=== PATIENT | female | born 1985 | race American Indian/Alaskan Native ===

== ENCOUNTER 2020-06-28 09:31 | Day surgery (SDC) | payer OTHER | END 2020-06-28 19:35 | disposition home or self-care (01) | LOC: CIR.AMB 09:31 | PROVIDERS: ATTEND Obstetrics & Gynecology Obstetrics | DX: N93.8 Other specified abnormal uterine and vaginal bleeding (principal); Z20.828 Contact with and (suspected) exposure to other viral communicable diseases ==

== ENCOUNTER 2021-05-10 22:42 | Emergency (ER) | payer OTHER ==
[~2021-05-10] VITALS: Ht 162.6 cm; Wt 73.5 kg
[2021-05-10] MEDS ORDERED: PRENATAL + DHA1 EAC1 (22:49)
== END 2021-05-11 02:24 | disposition home or self-care (01) ==
LOC: ER 22:42
DX: O46.91 Antepartum hemorrhage, unspecified, first trimester (principal); Z3A.01 Less than 8 weeks gestation of pregnancy

== ENCOUNTER 2021-06-03 16:39 | Emergency (ER) | payer OTHER ==
[~2021-06-03] VITALS: Ht 162.6 cm; Wt 73.5 kg
[~2021-06-03 16:39] MED LIST: PRENATAL + DHA1 EAC1
== END 2021-06-03 21:14 | disposition home or self-care (01) ==
LOC: ER 16:39
DX: O20.9 Hemorrhage in early pregnancy, unspecified (principal); Z3A.10 10 weeks gestation of pregnancy

== ENCOUNTER 2021-06-27 13:02 | Emergency (ER) | payer OTHER ==
[~2021-06-27] VITALS: Ht 162.6 cm; Wt 73.9 kg
[2021-06-27] MEDS ORDERED: NIFEDIPINE ER30 MG PO (13:54)
== END 2021-06-29 11:17 | disposition home or self-care (01) ==
LOC: ER 13:02 → SEC-K 19:09 → ER 06-29 11:17
DX: O99.412 Diseases of the circulatory system complicating pregnancy, second trimester (principal); O46.8X2 Other antepartum hemorrhage, second trimester; Z3A.22 22 weeks gestation of pregnancy; Z03.818 Encounter for observation for suspected exposure to other biological agents ruled out; R00.0 Tachycardia, unspecified

== ENCOUNTER 2021-08-14 13:01 | Outpatient (CLI) | payer OTHER ==
[~2021-08-14 13:01] MED LIST changes: +NIFEDIPINE ER30 MG PO
== END 2021-08-14 14:28 | disposition home or self-care (01) ==
LOC: PRENATAL 13:01
PROVIDERS: ATTEND Obstetrics & Gynecology Maternal & Fetal Medicine
DX: O35.0XX1 Maternal care for (suspected) central nervous system malformation in fetus, fetus 1 (principal); O35.3XX1 Maternal care for (suspected) damage to fetus from viral disease in mother, fetus 1; O98.512 Other viral diseases complicating pregnancy, second trimester; O10.012 Pre-existing essential hypertension complicating pregnancy, second trimester; O09.522 Supervision of elderly multigravida, second trimester; Z36.89 Encounter for other specified antenatal screening; Z3A.20 20 weeks gestation of pregnancy

== ENCOUNTER 2021-09-06 06:06 | Emergency (ER) | payer OTHER ==
[~2021-09-06] VITALS: Ht 162.6 cm; Wt 78.5 kg
[2021-09-06] MEDS ORDERED: INDERAL XL80 MG PO (06:17)
[2021-09-06] MEDS ORDERED: AMOX1TAB5 PO (10:12)
== END 2021-09-06 10:45 | disposition home or self-care (01) ==
LOC: ER 06:06
DX: H92.01 Otalgia, right ear (principal); O26.892 Other specified pregnancy related conditions, second trimester; O13.2 Gestational [pregnancy-induced] hypertension without significant proteinuria, second trimester; Z3A.24 24 weeks gestation of pregnancy

== ENCOUNTER 2021-11-17 13:37 | Outpatient (CLI) | payer OTHER ==
[~2021-11-17 13:37] MED LIST changes: +AMOX1TAB5 PO; +INDERAL XL80 MG PO
== END 2021-11-17 14:48 | disposition home or self-care (01) ==
LOC: PRENATAL 13:37
PROVIDERS: ATTEND Obstetrics & Gynecology Maternal & Fetal Medicine
DX: O10.013 Pre-existing essential hypertension complicating pregnancy, third trimester (principal); O26.843 Uterine size-date discrepancy, third trimester; O09.523 Supervision of elderly multigravida, third trimester; O36.8131 Decreased fetal movements, third trimester, fetus 1; Z36.89 Encounter for other specified antenatal screening; Z3A.33 33 weeks gestation of pregnancy

== ENCOUNTER 2021-11-23 14:51 | Inpatient (IN) | payer OTHER ==
[~2021-11-23] VITALS: Ht 157.5 cm; Wt 82.6 kg
[2021-11-24] MEDS ORDERED: NIFEDIPINE ER30 MG (16:23)
== END 2021-11-25 09:31 | disposition home or self-care (01) | DRG 833 ==
LOC: OBS/DEL 14:51 → LDR 11-24 14:29
PROVIDERS: ADMIT Obstetrics & Gynecology Obstetrics; ATTEND Obstetrics & Gynecology Obstetrics
PROC: 4A1HXCZ Monitoring of Products of Conception, Cardiac Rate, External Approach (ICD-10-PCS; principal; 2021-11-24)
DX: O23.03 Infections of kidney in pregnancy, third trimester (principal); Z3A.34 34 weeks gestation of pregnancy; Z20.822 Contact with and (suspected) exposure to COVID-19

== ENCOUNTER 2021-12-10 14:03 | Outpatient (CLI) | payer OTHER ==
[~2021-12-10 14:03] MED LIST changes: +NIFEDIPINE ER30 MG
== END 2021-12-10 15:18 | disposition home or self-care (01) ==
LOC: PRENATAL 14:03
PROVIDERS: ATTEND Obstetrics & Gynecology Maternal & Fetal Medicine
DX: O26.849 Uterine size-date discrepancy, unspecified trimester (principal); O09.529 Supervision of elderly multigravida, unspecified trimester; O10.019 Pre-existing essential hypertension complicating pregnancy, unspecified trimester; O36.8199 Decreased fetal movements, unspecified trimester, other fetus

== ENCOUNTER 2021-12-15 13:33 | Inpatient (IN) | payer OTHER ==
[~2021-12-15] VITALS: Ht 162.6 cm; Wt 84.4 kg
[2021-12-15] MEDS ORDERED: INDERAL LA80 MG PO (14:25)
[2021-12-15] MEDS ORDERED: CEFADROXIL500 MG PO (14:26)
== END 2021-12-18 14:17 | disposition home or self-care (01) | DRG 785 ==
LOC: LDR 13:33 → OB/GYN 13:33
PROVIDERS: ADMIT Obstetrics & Gynecology Obstetrics; ATTEND Obstetrics & Gynecology Obstetrics
PROC: 0UB70ZZ Excision of Bilateral Fallopian Tubes, Open Approach (ICD-10-PCS; 2021-12-15)
PROC: 4A1HXCZ Monitoring of Products of Conception, Cardiac Rate, External Approach (ICD-10-PCS; 2021-12-15)
PROC: 10D00Z1 Extraction of Products of Conception, Low, Open Approach (ICD-10-PCS; principal; 2021-12-15 18:00)
DX: O34.211 Maternal care for low transverse scar from previous cesarean delivery (principal); Z30.2 Encounter for sterilization; Z37.0 Single live birth; Z20.822 Contact with and (suspected) exposure to COVID-19; Z3A.38 38 weeks gestation of pregnancy